=== PATIENT | female | born 1985 | race Caucasian/White ===

== ENCOUNTER 2024-09-21 13:31 | Emergency (ER) | payer OTHER, SELFPAY ==
[2024-09-21 13:34] VITALS: BP 106/74
[2024-09-21 14:32] LABS: COVID-19 Antigen Negative (Negative)
--- NOTE | 2024-09-21 16:37 | ED.GENMED ---
History of Present Illness
General
Chief Complaint: Dizziness
Source: patient and spouse
Time Seen by Provider: 09/21/24 15:40
History of Present Illness
History of Present Illness:
39-year-old female presents emergency department a 2-day history of overall body fatigue, aches, and intermittent cough since . Today, she went to work and started to feel dizzy like she is going to pass out so she laid down on the floor
and called for help. Patient arrived to the emergency department via EMS. She denies associated palpitations, chest pain, dyspnea, abdominal pain. She admits to poor p.o. intake. She denies diarrhea. She did have an episode of vomiting while
getting blood work here. Patient denies other complaints
Past History
Past History
ED Past Medical History: Hypothyroidism
ED Past Surgical History: Other (Gastric sleeve)
Patient has exhibited threatening behavior?: No
Social History
Tobacco: Non-smoker
Alcohol: None
Drug: None
Personal:
Living: with family
Employment: Employed
Phy Exam
Physical Exam
Physical Exam:
GENERAL: Alert , in no apparent distress
EYE: pupils equal and reactive
NECK: Supple, no significant adenopathy.
ENT: o/p clr, mm dry
CARDIAC: Regular rate and rhythm .
LUNGS: Clear breath sounds bilaterally, no acute respiratory distress, no wheezes/rales/rhonchi
ABDOMEN: Soft, without focal tenderness, no r/g, no cvat
NEUROLOGICAL: Alert and oriented, no focal neuro deficits
SKIN: Warm and dry, skin intact.
MUSCULOSKELETAL: No edema, well perfused.
PSYCH: Normal and appropriate interaction.
Course
Orders/Labs/Results
Orders:
Orders
09/21/24 13:39
EKG [Electrocardiogram (*1)] Urgent
Reason for Study: Syncope
09/21/24 13:40
EKG- Treatment ONCE
Test Result ONCE
09/21/24 14:00
COVID-19 Antigen Urgent
Source: Nasal Swab
Influenza A+B Rapid Molecular Urgent
DANNA Source: Nasal Swab
Specimen Description:
09/21/24 16:36
0.9% Sodium Chloride 1000 ml [Nss] 1,000 ml IV BOLUS
09/21/24 17:07
Complete Blood Count/With Diff Urgent
Comprehensive Metabolic Panel Urgent
HCG, Serum Qualitative Screen Urgent
Abnormal Lab Results
09/21/24
17:07
MCHC 32.5 L g/dL
(33.0-37.0)
MPV 10.8 H fL
(7.4-10.4)
Absolute Lymphs (auto) 1.1 L 10^3/uL
(1.2-3.4)
Lymphocytes % 19.8 L %
(20.5-51.1)
Glucose 147 H mg/dl
(70-99)
AST 40 H U/L
(14-36)
09/21/24 17:07
09/21/24 17:07
Vital Signs
Initial and Last Documented VS:
Initial Vital Signs
Temp Pulse Resp BP Pulse Ox
99.5 F 94 18 106/74 97
09/21/24 13:34 09/21/24 13:34 09/21/24 13:34 09/21/24 13:34 09/21/24 13:34
Last Documented Vital Signs
Temp Pulse Resp BP Pulse Ox
99.5 F 68 18 107/67 100
09/21/24 13:34 09/21/24 18:00 09/21/24 18:00 09/21/24 18:00 09/21/24 18:00
*Critical Care Note
Total Time (30-74mins, 75-104mins- exclusive of procedures): Not Applicable
Update Note
Update Note:
Patient presents to the Emergency Department with ___near syncope, fatigue, body aches, cough
Number and Complexity of Problems Addressed at the Encounter
� Chronic conditions affecting care:
� Acute Exacerbation and/or Progression of Chronic Illness:
� Differential Diagnosis includes: But not limited to COVID, influenza, viral illness, dehydration, etc. etc.
Amount and/or Complexity of Data to be Reviewed and Analyzed
� I performed an independent evaluation of and my interpretation is:
EKG:read by me, nsr, nl rate, no acute ischemia
CT:
Xrays:
Laboratory Studies:Generally unremarkable
Other:
� Review of other/old records reveals:
� Clinical information was obtained by an independent historian:
� Prescriptions/Medications Considered but not given:
� Further testing considered but not performed:
Risk of Complications and/or Morbidity or Mortality of Patient Management
� Social determinants of health affecting care:
� Discussion with other providers (PCP, Hospitalists, Consultants, etc):
� Escalation of care including admission/observation vs risk of discharge considered:6:48 PM patient awake alert well-appearing without complaints. She is eager to go home denies chest pain, abdominal pain, nausea, vomiting,
dizziness. Discussed with patient portance of follow-up and reasons return to the ER. Patient declines Tamiflu at this time.
ED Attending Note
-
Portions of this chart may have been created with voice recognition software.� Occasional wrong word or��sound alike� substitutions may have occurred due to the inherent limitations of voice recognition software.
Discharge Plan
Departure
Patient Disposition: Home (Routine Discharge)
Date of Disposition: 09/21/24
Time of Disposition: 18:49
Patient with high blood pressure during this ER visit?: No
Condition: Good
Discharge Problem:
Influenza
Instructions: Flu, Dizziness
Referrals:
Carolin Crews CRNP [Family Provider] - Follow up in 2-3 days
Stand Alone Forms: Return to Work
Activity Restrictions/Additional Instructions:
IF YOU DEVELOP DIZZINESS, CHEST PAIN, SHORTNESS OF BREATH, PALPITATIONS, REPEATED VOMITING, OR OTHER WORRISOME SIGNS, PLEASE RETURN TO THE ER IMMEDIATELY.
Interventions
Interventions:
*Risk Screen - Suicide Last Done: 09/21/24 13:34
*General Assessment Last Done: 09/21/24 13:34
*Neglect/Abuse Screening Last Done: 09/21/24 13:34
*ED COVID-19 Vaccine History Last Done: 09/21/24 13:34
ED- Neurological Assessment Last Done: 09/21/24 15:53
ED Swallowing Screen Last Done: 09/21/24 15:53
Discharge Date and Time
Print Language: BHUTANESE
[2024-09-21] MEDS: NSS 1000 IV (17:07)
[2024-09-21 17:26] LABS: % Basophils 0.2 % (0-2); % Eosinophils 0.2 % (0-6); % Immature Granulocytes 0.2 % (0-0.5); % Lymphocytes 19.8 % (20.5-51.1); % Monocytes 6.8 % (1.7-9.3); % Neutrophils 72.8 % (42.2-75.2); Absolute Lymphocytes 1.1 10^3/uL (1.2-3.4); Absolute Monocytes 0.4 10^3/uL (0.1-0.6); Absolute Neutrophils 4.1 10^3/uL (1.4-6.5); Hematocrit 38.8 % (37.0-47.0); Hemoglobin 12.6 g/dL (12.0-16.0); Mean Corp Hgb Conc. 32.5 g/dL (33.0-37.0); Mean Corpuscular Hgb 29.1 pg (27.0-31.0); Mean Corpuscular Volume 89.6 fL (81.0-99.0); Mean Platelet Volume 10.8 fL (7.4-10.4); Nucleated Red Blood Cells % 0 %; Platelet Count 189 10^3/uL (130-400); Red Blood Cell Count 4.33 10^6/uL (4.20-5.40); Red Cell Dist. Width 13.3 % (11.5-14.5); White Blood Cell Count 5.6 10^3/uL (4.8-10.8)
[2024-09-21 17:36] LABS: HCG, Serum Qualitative Screen Negative
[2024-09-21 17:41] LABS: ALT (SGPT) 28 U/L (0-35); AST (SGOT) 40 U/L (14-36); Alkaline Phosphatase 49 U/L (38-126); Blood Urea Nitrogen 17 mg/dl (7-17); Calcium 8.7 mg/dl (8.4-10.2); Carbon Dioxide 22 mmol/L (22-30); Chloride 104 mmol/L (98-107); Glucose 147 mg/dl (70-99); Potassium 4.1 mmol/L (3.5-5.1); Sodium 138 mmol/L (135-145); Total Bilirubin 0.4 mg/dl (0.2-1.3); Total Protein 6.9 g/dl (6.3-8.2); eGFR > 60.00
[2024-09-21 18:00] VITALS: BP 107/67
== END 2024-09-21 19:09 | disposition home or self-care (01) ==
LOC: EMR 13:31
PROVIDERS: Student in an Organized Health Care Education/Training Program; EMERGENCY PHYSICIAN Emergency Medicine; FAMILY PHYSICIAN Nurse Practitioner Family
DX: J10.1 Influenza due to other identified influenza virus with other respiratory manifestations (principal); E03.9 Hypothyroidism, unspecified
CPT/HCPCS: 99284; 96360; 80053; 84703; 85025; 87502; 87811; 93005